=== PATIENT | male | born 1980 | race American Indian/Alaskan Native ===

== ENCOUNTER 2017-05-01 09:38 | Emergency (ER) | payer OTHER ==
[~2017-05-01] VITALS: Ht 165.1 cm; Wt 72.6 kg
[~2017-05-01 09:38] MED LIST: AMOXIL500 MG PO; ATIVAN1 M1 PO; AUGMENTIN 875 M1 TAB PO; CIPRODEX 0.3%-7.5 ML OT; DARVOCET-N 1001 EACH PO; FLEXERIL10 MG PO; HYDROCODONE1 TABLET PO; Hydroxyzine Pam25 MG PO; IBUPROFEN800 MG PO; MEDROL 4MG. DOSE4 MG PO; NADOLOL 20 MG T20 MG PO; NAPROSYN 500MG500 MG PO; NOMEDS; NOMEDS *; NOMEDS XX; OMNARIS50 MCG/Act NS; PEPCID20 MG OR; PERCOGESIC EXTR1 TAB PO; PROTONIX 40MG T40 MG PO; PROVENTIL0.09 MG/A1 IH; ROBAFEN AC 10480 ML PO; TESSALON PERLE100 M1 PO; ZANTAC 300300 M1 PO; ZITHROMAX Z-PA250 M2 PO; ZOFRAN ODT8 MG PO
--- OUTSIDE RECORDS SUMMARY | 2017-05-01 09:43 | External Medical Summary Rpt ---
Author Author [employer], [employer] Organization [employer] Address Unknown Phone Unavailable Results Natriutietic peptide B [Mass/volume] in Serum or Plasma Observa Value Referen Units Interpr Notes Date tion ce etation Range Natriutie 0 - 100 pg/mL Normal No Mar 27 tic informati 2016 4:15 peptide B on in PM source [Mass/vol data ume] in Serum or Plasma CBC W Auto Differential panel in Blood Observa Value Referen Units Interpr Notes Date tion ce etation Range Basophils 0 - 0.2 K/MM3 Normal No Mar 27 inform2016 4:15 [#/volume on in PM ] in source Blood by data Automated count Basophils 0.1 - 2.0 % Normal No Mar 27 informati 2016 4:15 leukocyte on in PM s in source Blood by data Automated count Eosinophi 0.0 - 0.4 K/mm3 Normal No Mar 27 ls informati 2016 4:15 [#/volume on in PM ] in source Blood by data Automated count Eosinophi 0.1 - % Normal No Mar 27 ls/100 12.0 informati 2016 4:15 leukocyte on in PM s in source Blood by data Automated count Granulocy 1.3 - 8.0 K/mm3 Normal No Mar 27 daisy informati 2016 4:15 [#/volume on in PM ] in source Blood by data Automated count Granulocy 37.0 - % Normal No Mar 27 daisy/100 80.0 informati 2016 4:15 leukocyte on in PM s in source Blood by data Automated count Hematocri 42.0 - % Normal No Mar 27 t [Volume 52.0 informati 2016 4:15 on in PM Fraction] source of Blood data Hemoglobi 14.1 - g/dL Normal No Mar 27 n 18.0 informati 2016 4:15 [Mass/vol on in PM ume] in source Blood data Lymphocyt 0.7 - 4.5 K/mm3 Normal No Mar 27 es informati 2016 4:15 [#/volume on in PM ] in source Unspecifi data ed specimen by Automated count Lymphocyt 10 - 50 % Normal No Mar 27 es informati 2016 4:15 [#/volume on in PM ] in source Unspecifi data ed specimen by Automated count Erythrocy 27 - 31.2 pg High No Mar 27 te mean informati 2016 4:15 corpuscul on in PM ar source hemoglobi data n [Entitic mass] Erythrocy 31.8 - g/dl High No Mar 27 te mean 35.4 informati 2016 4:15 corpuscul on in PM ar source hemoglobi data n concentra tion [Mass/vol ume] by Automated count Erythrocy 82.2 - fl Normal No Mar 27 te mean 97.8 informati 2016 4:15 corpuscul on in PM ar volume source [Entitic data volume] by Automated count Monocytes 0.1 - 1.0 K/mm3 Normal No Mar 27 informati 2016 4:15 [#/volume on in PM ] in source Blood by data Automated count Monocytes 1.7 - 9.3 % Normal No Mar 27 /100 informati 2016 4:15 leukocyte on in PM s in source Blood by data Automated count Platelet 7.4 - fl Normal No Mar 27 mean 10.4 informati 2016 4:15 volume on in PM [Entitic source volume] data in Blood by Automated count Platelets 142 - 424 K/mm3 Normal No Mar 27 informati 2016 4:15 [#/volume on in PM ] in source Blood data Erythrocy 4.6 - 6.2 M/mm3 Low No Mar 27 daisy informati 2016 4:15 [#/volume on in PM ] in source Amniotic data fluid Erythrocy 11.5 - % Normal No Mar 27 te 17.5 informati 2016 4:15 distribut on in PM ion width source [Entitic data volume] by Automated count Leukocyte 4.8 - K/MM3 Normal No Mar 27 s 10.8 informati 2016 4:15 [#/volume on in PM ] in source Blood data
--- OUTSIDE RECORDS SUMMARY | 2017-05-01 09:43 | External Medical Summary Rpt | CCD ---
Author Author , HJONNY DAWSON Address Unknown Phone [email or web address] Immunization Name Date Rout CVX Reac Dose Comm Prov Is Faci e tion ent ider Refu lity Give sed n Tdap 08-2 115 999 Hist H149 No H149 , 8-20 ori Adso 13 al rbed Info rmat ion - Sour ce Unsp ecif ied
--- OUTSIDE RECORDS SUMMARY | 2017-05-01 09:43 | External Medical Summary Rpt | CCD ---
Author Author , EUNICE Organization EUNICE Address Unknown Phone [email or web address] Care Team Providers Care Ammonia Solution Preparer Name Role Phone Bev Ortez MD, Unavailable Unavailable Bev Ortez MD Purpose Continuity of Care Document - 11-02-2012 through 2016 Problems Code Diagnosis DOS Provider Status 844.9 844.9 11-02-2012 [place] SPRAIN OF [facility] & LEG [facility] NOS E849.0 E849.0 11-02-2012 [place] ACCIDENT IN [facility] E927.0 E927.0 11-02-2012 [place] OVEREXERTIO [facility] SUDDEN STRENUOUS MOVEMENT J20.9 ACUTE BRONCHITIS, UNSPECIFIED J45.909 UNSPECIFIED ASTHMA, UNCOMPLICAT ED K27.9 PEPTIC ULC, SITE UNSP, UNSP AC OR CHR, W/O HEMOR OR PERF K29.70 GASTRITIS, UNSPECIFIED , WITHOUT BLEEDING K52.9 NONINFECTIV E GASTROENTER ITIS AND COLITIS, UNSPECIFIED M54.9 DORSALGIA, UNSPECIFIED R06.09 OTHER FORMS OF DYSPNEA R10.9 UNSPECIFIED ABDOMINAL PAIN Allergies, Adverse Reactions, Alerts Type Allergy to substance Adverse Reaction to Substance Substance Reaction Severity NO KNOWN ALLERGIES Unknown Unknown Medications Na ND Rx Da Fi Fi Am Da Di Ph RX Ph St me C No te ll ll ou ys ag ar # ys at rm s nt no ma ic us Or Da si cy ia de te s n re d AD 49 07 0 No AC 28 -1 EL 10 3- Lo 40 20 ng TD 01 13 er AP 0 Ac ti AL ve OX 00 07 0 No YC 40 -1 OD 60 3- Lo ON 52 20 ng -A 26 13 er CE 2 TA Ac WI ti NO ve PH EN 7. 5- 32 5 Vital Signs 12-12-2012 09:37 Name Value Interpretat Reference Comment ion Range Body 98.7 [degF] Temperature BP 72 mm[Hg] Diastolic BP Systolic 118 mm[Hg] Heart 65 /min Rate/Pulse O2% 100 % Respiratory 20 /min Rate 12-12-2012 09:08 Name Value Interpretat Reference Comment ion Range BP 71 mm[Hg] Diastolic BP Systolic 122 mm[Hg] Heart 70 /min Rate/Pulse O2% 96 % Respiratory 20 /min Rate 11-02-2012 10:22 Name Value Interpretat Reference Comment ion Range BP 88 mm[Hg] Diastolic BP Systolic 115 mm[Hg] Heart 62 /min Rate/Pulse O2% 99 % Respiratory 20 /min Rate 11-02-2012 10:09 Name Value Interpretat Reference Comment ion Range BP 89 mm[Hg] Diastolic BP Systolic 118 mm[Hg] Heart 64 /min Rate/Pulse O2% 99 % Respiratory 20 /min Rate Results Labs Lab Lab Date Result Refere Interp Status Commen Order Detail nces retati t Range on CBC w auto diff (03-27-2017 16:15) Automat = 0.1 0-0.2 complet ed 017 K/MM3 ed blood 16:15 basophi l count (count/ vo Baso % = 0.9 % 0.1-2.0 complet 017 ed 16:15 Automat = 0.2 0.0-0.4 complet ed 017 K/mm3 ed blood 16:15 eosinop hil count Automat = 2.0 % 0.1-12. complet ed 017 0 ed blood 16:15 eosinop hils/10 0 leukocy t Blood = 4.8 1.3-8.0 complet granulo 017 K/mm3 ed cytes 16:15 automat ed count (numb Granulo = 56.9 37.0-80 complet cyte 017 % .0 ed percent 16:15 age Blood = 42.2 42.0-52 complet hematoc 017 % .0 ed rit 16:15 (volume fractio n) Blood = 15.3 14.1-18 complet hemoglo 017 g/dL .0 ed bin 16:15 measure ment (mass/v olum Absolut = 2.8 0.7-4.5 complet e 017 K/mm3 ed lymphoc 16:15 yte count Lymphoc = 32.6 10-50 complet yte 017 % ed count, 16:15 blood, automat ed Mean = 33.2 27-31.2 complet corpusc 017 pg ed ular 16:15 hemoglo bin (MCH) determ Automat = 36.1 31.8-35 complet ed 017 g/dl .4 ed erythro 16:15 cyte mean corpusc ular h Automat = 92.0 82.2-97 complet ed 017 fl .8 ed erythro 16:15 cyte mean corpusc ular v Absolut = 0.7 0.1-1.0 complet e 017 K/mm3 ed monocyt 16:15 e count [place] % = 7.7 % 1.7-9.3 complet 017 ed 16:15 Automat = 7.4 7.4-10. complet ed 017 fl 4 ed blood 16:15 platele t mean volume meri Blood = 393 142-424 complet platele 017 K/mm3 ed t count 16:15 Red = 4.59 4.6-6.2 complet blood 017 M/mm3 ed cell 16:15 count Automat = 12.7 11.5-17 complet ed 017 % .5 ed erythro 16:15 cyte distrib ution width Blood = 8.5 4.8-10. complet leukocy 017 K/MM3 8 ed daisy 16:15 count (number /volume ) Brain natriuretic peptide (03-27-2017 16:15) Brain 03-27-2 = 7 0-100 complet natriur 017 pg/mL ed etic 16:15 peptide Serum or plasma troponin i.cardiac measu (03-27-2017 16:15) Serum 03-27-2 < 0.02 0.00-0. complet or 017 ng/mL 06 ed plasma 16:15 troponi n i.cardi ac measu Basic metabolic panel (03-27-2017 16:15) Serum 03-27-2 = 9.0 8.5-10. complet or 017 mg/dL 1 ed plasma 16:15 calcium measure ment (mas Comment: PLEASE NOTE 3+ LIPEMIA Serum = 139 136-145 complet sodium 017 mmoL/L ed measure 16:15 ment Serum 03-27-2 = 3.7 3.5-5.1 complet potassi 017 mmoL/L ed um 16:15 measure ment Comment: PLEASE NOTE HEMOLYSIS IS PRESENT; MAY HAVE FALSELY ELEVATED Comment: K RESULT Serum = 108 74-106 complet or 017 mg/dL ed plasma 16:15 glucose measure ment (mas Comment: PLEASE NOTE 3+ LIPEMIA IS PRESENT Estimat 2 = 108 >60 complet ed 017 ML/MIN ed glomeru 16:15 lar filtrat ion rate (GF Comment: REFERENCE RANGE: >60 ML/MIN/1.73 SQUARE METERS Comment: If this patient is -Filipino, then multiply the Comment: result by 1.210. Estimat = 137 50-200 complet ion of 017 ML/MIN ed creatin 16:15 ine renal clearan ce Serum = 0.8 0.70-1. complet or 017 mg/dL 30 ed plasma 16:15 creatin ine measure ment ( Carbon = 25 21.0-32 complet dioxide 017 mmoL/L .0 ed 16:15 measure ment Serum = 103 98-107 complet or 017 mmoL/L ed plasma 16:15 chlorid e measure ment (mo Serum 2 = 14 7-18 complet or 017 mg/dL ed plasma 16:15 urea nitroge n measure men D-dimer (03-27-2017 16:15) D-dimer < 100 0-400 complet 017 ng/mL ed 16:15 Comment: The D-Dimer values are presented in units of mass(ng/mL) of Comment: D-Dimer units(DDU). Comment: Comment: This test has been FDA approved as an aid in the assessment Comment: and evaluation of suspected DIC, and thromboembolic events Comment: including PE and DVT. However, it does not have approval Comment: for cut-off values for the exclusion of these conditions. Procedures Procedure DOS Code Location Performer Comment APPLICATI 93.54 Bev Murillo MD SPLINT Encounters Encounter Start End Date Code Location Performer Type Date Emergency PARAG Lord MD (ER) 3 09:33 3 09:51 [facility] er R. Emergency PARAG Ortez MD (ER) 3 10:19 3 10:22 [facility]
--- OUTSIDE RECORDS SUMMARY | 2017-05-01 09:43 | External Medical Summary Rpt | CCD ---
Author Author , EUNICE Organization EUNICE Address Unknown Phone Care Team Providers Care Clinical Care Coordinator Name Role Phone Bev Ortez MD, Unavailable Unavailable Bev Ortez MD Purpose Continuity of Care Document - 11-02-2012 through 2016 Problems Code Diagnosis DOS Provider Status 844.9 844.9 11-02-2012 [place] SPRAIN OF [facility] & LEG [facility] NOS E849.0 E849.0 11-02-2012 [place] ACCIDENT IN [facility] E927.0 E927.0 11-02-2012 [place] OVEREXERTIO [facility] SUDDEN STRENUOUS MOVEMENT J20.9 ACUTE BRONCHITIS, UNSPECIFIED [...] 26 13 er CE 2 TA Ac DE ti NO ve PH EN 7. 5- [...] 017 K/mm3 ed monocyt 16:15 e count Andrew % = 7.7 % 1.7-9.3 complet 017 [...] SQUARE METERS Comment: If this patient is -Serbian, then multiply the Comment: result by 1.210. [...] (ER) 3 09:33 3 09:51 [facility] er R. Emergency PARAG Ortez MD (ER) 3 10:19 3 10:22 [facility]
--- OUTSIDE RECORDS SUMMARY | 2017-05-01 09:43 | External Medical Summary Rpt | CCD ---
Author Author , JHONNY DAWSON Address Unknown Phone [email or web address] Immunization Name Date Rout CVX Reac Dose Comm Prov Is Faci e tion ent ider Refu lity Give sed n Tdap 08-2 115 999 Hist H149 No H149 , 8-20 ori Adso 13 al rbed Info rmat ion - Sour ce Unsp ecif ied
[2017-05-01] MEDS ORDERED: VALACYCLOVIR H500 M1 PO (10:31)
--- NOTE | 2017-05-01 10:32 | Urgent Treatment Center Report ---
History of Present Issue Date/Time Seen by Provider 05/01/17 1001 Visit Reason Pt arrived:Walked Presenting Problem:COMPLAINS OF DIARRHEA FOR A FEW DAYS NO VOMTING. MAIN REASO THAT HE CAME HERE TODAY IS BECAUSE HIS THROAT HAS BEEN SORE OFF AND ON FOR 1 MONTH. Location if Accident: Onset of symptoms date/time:/ or onset unknown for:MEDICAL HX UNKNOWN Have you (or family members/close friends) recently traveled outside the [place]? N If Yes, where/when: Have you had exposure to infectious disease within the past month? TB? Other? Specify: Mulitple complaints. Offered bureau director but pt feels not necessary Sore throat x 1 month. Worse at night. Associated with rhinorrhea and PND. improved with sore throat lozenge but reoccurs. Described as itchy, scratchy and at times "just irritating". Denies swelling. No fever, aches, chills. No known sick contacts. Hasn't taken or tried anything else. Diarrhea since most recent ER visit. Mar 27 according to [employer]. Pt reports "that is right. About a month" Reports he took an antibiotic at that time that caused diarrhea but diarrhea hasn't resolved despite finishing the medication. loose "like runny oatmeal" 5-6 times a day. Denies blood, mucous or foul odor. Normal appetite. Stomach "rumbles" throughout day but no pain, fever, N/V. "just diarrhea". OTC anti-diarrheals help but once stops taking them, diarrhea returns again. No one w/ similiar symptoms. Hx of genital herpes. Requesting prescription of valtrex for outbreaks. Denies current outbreak. PCP , Dr. Nieves. Used to have refills on hand for outbreaks. Dx "many years ago. I have dealt with this a long time." Source patient Exam Limitations no limitations ALLERGIES Coded Allergies: No Known Allergies (03/27/17) Home Medications Reported Medications No Home Medications (NO HOME MEDICATIONS) 1 EACH XX ONCE History Medical History General CAD? No Angina: No KS: No Hypertension? No Hyperlipidemia? No CHF? No DVT? No PE? No COPD? No Asthma? No Anemia? No GERD? No Gastric ulcers? No GI Bleed? No Hernia? No Thyroid Problems? No Hypothyroidism? No CVA? No Seizures? No Diabetes? No Insulin Dependent: No Insulin Pump: No Home FSBS? No Renal Insuffiency? No UTI? No Stones? No BPH? No GB Disease: No Nephritic Syndrome? No Asplenia? No Hepatitis? No Sickle Cell Disease? No Arthritis? No Migraines? No Cataracts? No Glaucoma? No MRSA? No HIV? No TB? No Anxiety? No Depression? No Cancer? No Site: N Immunization HX DT/Tetanus 12/12/12 Surgical Hx Previous Surgery?N Social History Smoking Hx Smoker: Never Smoker Tobacco: No Alcohol Alcohol: No Review of Systems All Other Systems Reviewed and Negative Constitutional see HPI, denies malaise, denies weakness Eyes denies drainage ENT see HPI, nose discharge. denies: ear pain, nose congestion, throat swelling. Respiratory cough ("from tickle at times"), denies shortness of breath Cardiovascular denies chest pain Gastrointestinal see HPI Genitourinary hx stds. denies: discharge, dysuria, frequency, hesitancy, hematuria, pain, penis pain, pelvic pain, scrotal/testicular pain, genital lesions. Musculoskeletal denies back pain, denies joint pain Skin denies lesions, denies lumps, denies rash Psychiatric/Neurological denies headache, denies other (dizziness) Physical Exam Vital Signs Vital Signs Date Time Temp Pulse Resp B/P Pulse O2 O2 Flow FiO2 Ox Delivery Rate 05/01 0946 97.9 66 20 108/84 99 General Appearance normal appearance, no apparent distress Eye Exam - bilateral eye normal exam Ear, Nose, Throat normal ENT inspection (x/ clear PND & cobblestoning) Neck non-tender, supple Respiratory Status No: respiratory distress, productive cough, non productive cough. Lung Sounds anterior: lungs clear. posterior: lungs clear. bilateral: lungs clear. Cardiovascular regular rate/rhythm, no peripheral edema, no murmur Gastrointestinal non tender, soft, no organomegaly, no pulsatile mass, abnormal bowel sounds (hyperactive), no guarding, no rebound Male Genitalia pt refused "nothing there now. I know the problem as I have dealt with it for years" Neurologic alert, oriented x 3 Mental status normal mood/affect Skin normal color, warm/dry Lymphatic no adenopathy Medical Decision Making LABS/Meds/Orders Pt receiving controlled substance in ED? No Departure Departure Time of Disposition 1023 Disposition DC Home or Self Care(routine) Clinical Impression Primary Impression: Antibiotic-associated diarrhea Secondary Impressions: History of herpes genitalis, Medication refill, Post- nasal drainage Condition STABLE Referrals NO REFERRAL Due to the sudden passing of your family physician over 6 months ago, we have provided you with a list of providers accepting patients. I would encourage you find him a new primary care provider and make an appt KAREL as it can take weeks to get a new patient appointment. In the meantime, follow up in the clinic or ER for new, worsening or persistent symptoms. However, we will not continue to prescribe your chronic medications. I have given you a prescription for your next outbreak but need to see a primary care provider for continued refills. Patient Instructions Antibiotic-associated Colitis -- C difficile, DI for Genital Herpes, Sore Throat Additional Instructions SORE THROAT * Drainage related. Start claritin (the generic is fine) 10mg by mouth daily * warm salt water gargles * warm fluids * sore throat lozenges * sleep elevated * humidifier/vaporizer DIARRHEA * As we discussed, I am concerned you have an antibiotic related illness * Return diarrhea promptly for stool studies. If greater than 30 minutes from the time you collect sample to the time you return it to hospital, need placed in fridge. Return to [facility] window 9a-9p or registration desk after hours. We will follow up with results but if you haven't heard from us within one day of leaving sample, call [phone] and request results * Avoid antidiarrheals until we know cause of diarrhea * Seek prompt treatment for abdominal pain or fever HERPES * valtrex as needed for outbreak of lesions * follow up with primary care for additional refills and to discuss suppression therapy that you take daily Discharge Counseling Counseled pt/family regarding diagnosis, medications/RX, home care, follow up needs Prescriptions Current Visit Scripts VALACYCLOVIR HCL (Valacyclovir) 500 MG PO [id number] #6 TAB one tablet by mouth every 12 hours x 3 days, start immediately when feel symptoms starting at 1047
[2017-05-01 10:37] VITALS: BP 108/84
== END 2017-05-01 10:37 | disposition home or self-care (01) ==
LOC: UTC 09:38
DX: K52.1 Toxic gastroenteritis and colitis (principal); T36.95XA Adverse effect of unspecified systemic antibiotic, initial encounter; B00.9 Herpesviral infection, unspecified

== ENCOUNTER → 2017-05-02 | Outpatient (CLI) | payer OTHER ==
[~2017-05-02] MED LIST changes: +VALACYCLOVIR H500 M1 PO
[2017-05-02 22:01] LABS: AEROMONAS NOT DETECTED (NOT DETECTE)
[2017-05-02 22:02] LABS: ASTROVIRUS NOT DETECTED (NOT DETECTE); CYCLOSPORA CAYETANENSIS NOT DETECTED (NOT DETECTE); E COLI O157 NOT DETECTED (NOT DETECTE); ENTEROAGGREGATIVE E COLI NOT DETECTED (NOT DETECTE); ENTEROPATHOGENIC E COLI NOT DETECTED (NOT DETECTE); ENTEROTOXIGENIC E COLI NOT DETECTED (NOT DETECTE); NOROVIRUS NOT DETECTED (NOT DETECTE); SAPOVIRUS NOT DETECTED (NOT DETECTE); SHIGA-LIKE TOXIN PROD. E COLI NOT DETECTED (NOT DETECTE); SHIGELLA/ENTEROINVASIVE E COLI NOT DETECTED (NOT DETECTE); VIBRIO CHOLERAE NOT DETECTED (NOT DETECTE)
== END ==
LOC: LAB 21:51
PROVIDERS: Nurse Practitioner Family
DX: K52.1 Toxic gastroenteritis and colitis (principal)